=== PATIENT | male | born 1995 | race Caucasian/White ===

== ENCOUNTER 2018-03-11 01:06 | Emergency (ER) | payer OTHER ==
[2018-03-11] MEDS ORDERED: ACETAMINOPHEN 500 MG TAB PO ONE (02:08)
[2018-03-11] MEDS ORDERED: ONDANSETRON DISINTEGRATING 4 MG TAB PO ONE (02:08)
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
[2018-03-11] MEDS ORDERED: ONDANSETRON 4MG PREPACK#2 BTL TAKEHOME ONE (03:14)
[2018-03-11 03:25] VITALS: BP 123/58
== END 2018-03-11 03:24 | disposition home or self-care (01) ==
DX: R50.9 Fever, unspecified (principal); R11.2 Nausea with vomiting, unspecified; F17.200 Nicotine dependence, unspecified, uncomplicated

== ENCOUNTER 2018-08-01 12:35 | Inpatient (IN) | payer OTHER ==
[2018-08-01] MEDS ORDERED: NICOTINE POLACRILEX 2 MG GUM B PRN (12:52)
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
[2018-08-01 13:16] LABS: PLATELET COUNT 315 10^3/uL (150-400)
--- NOTE | 2018-08-01 17:35 | ASMTTCLDSP ---
TLC Discharge Disposition Disposition: Answers: Admit Disposition Notes: Notes: In consultation with [facility] ED physician, Wilmer Gramajo MD and [facility] on-call psychiatrist, Zack Carvajal MD, both concurred that pt appears to meet 27-65 criteria requiring psychiatric hospitalization as the patient appears to be an imminent risk of harm to self due to a mental illness condition. The patient was given the 3N prohibited belongings list while in the ED. Was patient given the Answers: Yes Inpatient Behavioral Health Prohibited Belongings List while in the ED? Type of Hold: Answers: M1/72-hour Hold Hold initiated by: Answers: ED Physician Date Signed: 08/01/2018 05:34 PM Electronically Signed By:Inés Carrasco
[2018-08-01] MEDS ORDERED: NICOTINE 21 MG/24 HR PATCH TD ONE ×2 (18:04→18:05)
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
[2018-08-01] MEDS ORDERED: LORazepam 0.5 MG TAB PO PRN (19:47)
[2018-08-01] MEDS ORDERED: ACETAMINOPHEN 325 MG TAB PO PRN (19:47)
[2018-08-01] MEDS ORDERED: MAGNESIUM HYDROXIDE 30 ML UDCUP PO PRN (19:47)
[2018-08-01] MEDS ORDERED: OLANZapine DISINTEGR 10 MG TAB PO PRN (19:47)
[2018-08-01] MEDS ORDERED: MAG HYDROX/AL HYDROX/SIMETH 30 ML UDCUP PO PRN (19:47)
[2018-08-01] MEDS: NICOTINE POLACRILEX 2 MG GUM B PRN ×2 (20:09→22:07)
[2018-08-01] MEDS ORDERED: hydrOXYzine HCL 25 MG TAB PO SCH (21:00)
[2018-08-01] MEDS ORDERED: FLUoxetine 20 MG CAP PO SCH (21:00)
[2018-08-01] MEDS: MELATONIN 3 MG TAB PO PRN (22:38)
--- NOTE | 2018-08-01 23:39 | PDGENHP ---
History and Physical History and Physical: HOSPITAL MEDICINE CONSULT FOR BEHAVIOR HEALTH UNIT ADMISSION CC: Suicidal ideation HISTORY: This patient is brought in involuntarily to the ER because of suicidal ideation. He does not have a plan or specific intent but is very scared that he may attempt suicide in the near future. He does not have any weapons. The patient does have significant depression and is on treatment with SSRI for that. He has does not have previous suicide attempts, is not hallucinating, does not have paranoid thoughts. He does drink 3-5 drinks of alcohol daily but does not use street drugs. Notably he has a brother who successfully committed suicide 1 year ago, and states that his family are having quite a bit of trouble coping. His family is in [place] he is the only member here in [place]. He does have a girlfriend here who is supportive and at the bedside. ROS: A comprehensive 10 system review revealed no other significant findings PAST MEDICAL HISTORY: Closed head injury from trauma with skull fracture; this injury leaves him with some memory deficits that are mild, but he is able to work and drive. 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 I have reviewed the list and ordered appropriate medicines. PHYSICAL EXAMINATION: Vital Signs: Stable without fever Examination: General: alert, oriented, good mentation, reasonably relaxed Psych and Affect: Somewhat flat, no anger, no hallucinations, no paranoia or grandiosity, no pressured speech Skin: warm, dry, good color, no rash HEENT: normal Neck: no mass or jvd Resps: relaxed Lungs: clear breath sounds Heart: regular, no murmur Abdomen: soft, nondistended, nontender, +BS, no mass Upper Extremities: normal Lower Extremities: no edema, warm No Bleeding or bruising Neurologic: normal speech/language, normal foam caster, no focal weakness, no tremor IV site: looks normal LABORATORY DATA: Negative drug screen Alcohol 11 Negative salicylate and Tylenol ASSESSMENT: * suicidal ideation and depression * family history of successful suicide in his brother 1 year ago * alcohol abuse 3-5 drinks daily * prior history closed head injury with some mild memory issues PLANS: * I did review with the patient in detail that alcohol significantly increases his risk of successful suicide, as well as hinders any chance of successfully treating his depression, and we had a good discussion around his use of alcohol and approaching sobriety * At this time no other significant medical issues that require any further assessment or management * Agree with transfer to Behavioral Health Unit which the patient is doing voluntarily
[2018-08-02] MEDS: NICOTINE 21 MG/24 HR PATCH TD SCH (08:35)
--- NOTE | 2018-08-02 08:45 | ASMTBHMTP ---
GUILLERMO Master Treatment Plan Master Treatment Plan Answers: Depressed Mood with for: Suicidal Ideation Date: 08/02/2018 Diagnosis on Admission: Major Depressive Disorder Expected length of stay: 3-5 Days Reason for admission: Notes: Per [facility] Evaluation - Pt. is a 23 year old male, single, employed, with a history of depression. He is living an apartment in [place], [place]. The patient self-presented to [facility] ED and was placed on a 27-65 M1 Hold. Per M1 hold, "The patient is having suicidal thoughts of taking pills/medications, history of depression, self-presented with worsening depression." According to the provider report, the patient is being treated with an SSRI. Last night he was sitting in his car with worsening depression and thinking about taking all of his pills. He presents today with continued suicidal ideation which is severe. He denies actually injury and overdose. At the time of initial UTOX testing in the Ed @ 13:00 the patient's BAL was 11. According to security, the patient yelled "fuck" while he was alone in the patient room. Security responded and he reported that was reacting his circumstances. According to the patient's girlfriend, the patient is at his "breaking point", he now realizes how important it is for him to get help. she reported having encouraged him for the past few months with success. She denied any relationship distress, although encourage the difficult of supporting his declining MH. Patient's stated presenting problems: Notes: Tried to kill myself, by taking an overdose. Got scared and brought myself in. Patient's goals for treatment: Notes: Get a psychiatric evaluation. Walk away with a better idea of what to do. 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 Initial disposition plan/considerations: Notes: Return home and maybe take a couple days off from work. Master Treatment Plan Required Signatures Psychiatrist signature: Answers: Psychiatrist: RN on-shift signature: Answers: RN: Patient signature: Answers: Patient: Date Signed: 08/02/2018 08:45 AM Electronically Signed By:Vanessa Velazquez
[2018-08-02] MEDS ORDERED: NICOTINE 21 MG/24 HR PATCH TD ONE ×2 (09:00)
[2018-08-02] MEDS: NICOTINE POLACRILEX 2 MG GUM B PRN ×5 (09:03→21:17)
--- NOTE | 2018-08-02 11:23 | PDMN ---
Medical Necessity Medical necessity: [id number] Major Depressive Disorder, Adult: Inpatient Care: 23 yo w/ major depressive d/o, recurrent, moderate; generalized anxiety d/o; PTSD; r/o bipolar I d/o, on M1 hold, risk of harm to self, suicidal ideation.
[2018-08-02] MEDS ORDERED: FLUoxetine 20 MG CAP PO ONE (13:32)
--- NOTE | 2018-08-02 13:42 | ASMTCMCOM ---
CM Note CM Note Notes: Pt and CC completed MTP and placed in pt's chart. Pt. reports no current legal issues. Pt. stated he drinks "everyday", adding he usually has 5-6 drinks per sitting. Pt. stated his drinking has been a problem and pt "wants to slow down". Pt. stated he would be open to assistance to reduce his drinking. Pt. stated he eats a THC edible every night to help him sleep. Pt. stated he doesn't use any other substances currently. Pt. stated he last used Jasmin and Cocaine two months ago. Pt. denied SI, HI, VH and paranoia. Pt. reports AH of hearing his little brother's voice, who committed suicide one year ago. Pt. stated he hears his brother "saying to come get him, he is scared". Pt. reports AH "not that often" and having been hearing them for the past 6 months. Pt. presents as alert, calm, friendly, good eye contact, and cooperative. Staff report pt. sleeping 8 hours and being medication compliant. Date Signed: 08/02/2018 01:41 PM Electronically Signed By:Vanessa Velazquez
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
[2018-08-02] MEDS: traZODone 50 MG TAB PO SCH (20:56)
[2018-08-02] MEDS: PRAZOSIN HCL 1 MG CAP PO SCH (20:56)
[2018-08-02] MEDS: MELATONIN 3 MG TAB PO PRN (21:17)
[2018-08-03] MEDS: NICOTINE POLACRILEX 2 MG GUM B PRN ×5 (09:05→21:15)
[2018-08-03] MEDS: NICOTINE 21 MG/24 HR PATCH TD SCH (09:06)
[2018-08-03] MEDS: FLUoxetine 20 MG CAP PO SCH (09:34)
--- NOTE | 2018-08-03 14:00 | SOAPPROG ---
SOAP Progress Note Assessment/Plan: Assessment: PTSD, Alcohol Use Disorder, Severe, and Cannabis Use Disorder, Severe. Patient is improving with plan to discharge tomorrow if stable and safe discharge plan. Plan: 1. Psychotropic medications: After reviewing options, risks, and benefits patient agrees to continue current medications. No medication changes at this time as more time is needed to determine ongoing tolerability and efficacy. Plan is to continue to observe patient for response and side effects from medications, and ongoing monitoring and evaluation. 2. Review with patient informed consent and recommendations for psychotropic medication treatment listed below 3. Labs: no additional labs at this time 4. Therapy: continue milieu and group therapy 5. Further investigation including gathering information from patients relatives and review of past case records to inform treatment plan. 6. Safety/Wellness plan and follow-up outpatient appointments to be established prior to discharge. Next steps are for patient to meet with healthcare network pricing consultant to plan a safe discharge plan and establish outpatient services for ongoing treatment. 7. Confer with inpatient treatment team regarding treatment plan. 8. Psychosocial stressors addressed through case management 9. Legal status: M1 10. Consider discharge on Thursday if patient is in stable condition, safe, and has a safe discharge plan. 11. Substance abuse interventions: alcohol and cannabis PSYCHOTROPIC MEDICATION TREATMENT INFORMED CONSENT and RECOMMENDATIONS: Review nature of condition, diagnosis, and prognosis. Review nature and purpose of psychotropic medication treatment. Review type of psychotropic medications being ordered. Review risk and benefits of psychotropic medication treatment. Review probable length of time patient will need to take medications. Review risk and benefits of not undergoing psychotropic medication treatment. Review alternative treatments to psychotropic medications. Review psychotropic medications contraindications, drug-drug interactions, side effects, and importance of reporting any side effects to a psychiatric provider or nurse during inpatient hospitalization, and upon discharge to patients psychiatric outpatient provider, primary care provider, or other health day care aide. Review importance of asking a nurse, psychiatric provider, or primary care provider any questions or problems concerning the psychotropic medications. Verify patient understands the information that has been provided, and understands, accepts, and agrees to psychotropic medications. Review patients safety plan and importance of patient to report to staff while hospitalized if patient is ever a danger to self/others, or unable to care for self, and upon discharge, the importance for patient to contact [facility] or [facility], or go to the nearest emergency room, if patient is ever a danger to self/others, or unable to care for self. Recommend that upon discharge patient establish medication management treatment with a psychiatric provider, establishes routine therapy appointments, and follow-up with primary care provider. Verify patient understands and agrees to these recommendations. 08/03/18 14:10 Subjective: Following up with patient for evaluation of PTSD and safety. Patient reports, "Doing much better, slept well." Patient expresses the following psychiatric symptoms none. Patient describes getting 8 hours of sleep, and reports feeling rested today. Patient reports taking medications as prescribed, and describes response to medications as good. Patient does not report undesirable side effects from the medications, and agrees to continue current medications. Patient reports no nightmares last night, reports he did dream, and slept throughout the night. Patient agrees to meet with his father today for family meeting. Objective: Vital Signs Temp Pulse Resp BP Pulse Ox 36.3 C 50 L 16 105/57 L 96 08/03/18 06:00 08/03/18 06:00 08/03/18 06:00 08/03/18 06:00 08/03/18 06:00 NURSING REPORT: Consulted with nursing for update on patients progress in treatment. Nurses report patient is engaged in treatment, is attending groups, slept 8 hours, expresses the following psychiatric symptoms: none, exhibits the following psychiatric symptoms: none, is eating all meals, and denies SI/HI, denies A/V hallucinations, and denies delusions. FAMILY MEETING: This TRIMMER MEAT met with patient and patients father at patients request to review discharge plan for tomorrow. Patient requests referrals for therapy/EMDR and medication management. This request is relayed to career placement specialist. Patients father plans to return tomorrow for family meeting prior to discharge at 1100. GLOBAL COMMODITY MANAGER UPDATE: establish safe discharge plan including appointments for OP services. SUBSTANCE ABUSE BRIEF INTERVENTION: Brief intervention regarding the risks of alcohol and cannabis abuse is provided to patient with goal to reduce the risk of harm that could result from the continued use of alcohol and cannabis, with the general aim to investigate the problem, raise awareness of problem, develop a solution with the patient, recommend a specific change or activity, and motivate the patient toward change. Assess substance abuse behavior and give supportive advice about harm reduction, recommend a reduction in hazardous/at- risk consumption patterns, and facilitate referrals for additional specialized treatment with career placement specialist. Intermediate goal is for the patient to quit and attend outpatient substance abuse treatment. Intervention focus on intermediate goals to allow for more immediate success in the treatment process to keep the patient motivated. Review following with patient: Cannabis use risks: Short-term use: impaired short-term memory, impaired motor coordination, altered judgement, in high doses paranoia and psychosis. Long-term use addiction, diminished life satisfaction and achievement, symptoms of chronic bronchitis, and increased risk of chronic psychosis disorders if predisposition to such disorders. In withdrawal anger, aggression irritability, anxiety and nervousness, decreased appetite or weight loss, restlessness, and sleep difficulties with strange dreams. Alcohol/Binge Drinking risks: short-term: injuries, violence, alcohol poisoning, risky sexual behaviors. Long-term: high blood pressure, stroke, liver disease, digestive problems, cancer, learning and memory problems, depression and anxiety, social problems, and alcohol dependence. OUTPATIENT SUBSTANCE ABUSE TREATMENT: Patient referred to outpatient provider and treatment for continued treatment related to substance abuse. MSE: The patient presents casually dressed and with good hygiene, and looks stated age. Patient is sitting, posture is upright, and position is relaxed. Patient appears awake, alert, and responds appropriately and reasonably during interview. Patient is engaged, relates well to interviewer, and emotional facial expression is appropriate to situation and changes appropriately with topic. Patient is cooperative, makes comfortable eye contact, and movements are voluntary, deliberate, coordinated, and smooth and even with no inappropriate movements. Patient makes laryngeal sounds effortlessly and shares conversation appropriately; pace of conversation is appropriate, and stream of talking is fluent; articulation is clear and understandable; word choice is effortless and appropriate for education level; completes sentences, occasionally pausing to think; rate and volume are appropriate for interview and setting. Patient reports mood as euthymic. Patients affect is stable with full variable range, congruent with mood, and appropriate to speech and circumstances. Patient has linear and logical thinking, with no loose associations, tangential thought, thought blocking, concrete thinking, or any other signs of formal thought disorder. Patient denies suicidal and homicidal ideation, and denies hallucinations and delusions. Patient appears to be a reliable historian with sound judgement and good insight into current condition. Patient has no apparent dysfunction in recent or remote memory noted , and no evidence of gross cognitive dysfunction noted at any point during the interview. - Time Spent With Patient Time Spent With Patient: 30 minutes, met with patient individually and with patient and patient's father at patient's request for family meeting. - Pending Discharge Pending Discharge Within 24 Hours: Yes Pending Discharge Within 48 Hours: No Pending Discharge Date: 08/04/18 Pending Discharge Time: 11:00 ICD10 Worksheet Patient Problems: Problems Problem Status Onset Severe major depression Acute Suicidal ideation Acute Cerebellar dysfunction Acute Headache Acute Subarachnoid bleed Acute
--- NOTE | 2018-08-03 14:20 | ASMTCMCOM ---
CM Note CM Note Notes: Pt., FOC and LAMP REPLACER had a family meeting today at 1:30pm. Pt. requested a psychiatrist and therapist, would like to be seen in the next week, and wants EMDR therapy. CC will need to follow up with [facility] for pt's therapy, and provider who accepts pt's insurance. Pt. would also benefit from additional substance use support. Staff report pt. sleeping 8 hours and being medication compliant. Date Signed: 08/03/2018 02:19 PM Electronically Signed By:Vanessa Velazquez
[2018-08-03] MEDS: PRAZOSIN HCL 1 MG CAP PO SCH (21:13)
[2018-08-03] MEDS: traZODone 50 MG TAB PO SCH (21:13)
[2018-08-03] MEDS: MELATONIN 3 MG TAB PO PRN (21:14)
[2018-08-04 06:42] VITALS: BP 106/51
[2018-08-04] MEDS: FLUoxetine 20 MG CAP PO SCH (08:48)
[2018-08-04] MEDS: NICOTINE 21 MG/24 HR PATCH TD SCH (08:54)
[2018-08-04] MEDS: NICOTINE POLACRILEX 2 MG GUM B PRN (09:41)
--- NOTE | 2018-08-04 11:43 | ASMTCMCOM ---
CM Note CM Note Notes: CC and COURT ADVOCATE met with Darrel and his father in preparation for discharge. Ct. presented with stable mood and denied SI. Ct. received a list of providers to follow up with upon discharge. Ct. will also have a followed up with his [facility] PCP how will call later in the week to schedule an appointment. Both ct. and FOC reported that they plan on scheduling F/U appointments [facility]. Date Signed: 08/04/2018 11:42 AM Electronically Signed By:Julia Francisco
--- NOTE | 2018-08-04 14:21 | BDS ---
REASON FOR ADMISSION: From the ED note dated 08/01/2018, patient presented to the emergency department, history of depression. The patient reported last night he was sitting in his car with worsening depression and thinking about taking all of his pills. Patient presents to the ER with continued suicidal ideation. Patient denied any actual injury or overdose. The patient was admitted involuntarily on an M1 hold due to being a danger to himself. The patient was admitted for safety, crisis stabilization, and medication management. ADMITTING DIAGNOSES: 1. Posttraumatic stress disorder. 2. Alcohol use disorder, moderate, dependence. 3. Cannabis use disorder, moderate, dependence. ADMISSION PHYSICAL EXAM: The patient was seen on 08/01/2018, for a history and physical for medical clearance for inpatient psychiatric hospitalization and treatment. The patient was medically cleared for inpatient psychiatric hospitalization and treatment. For further details, please refer to history and physical dated 08/01/2018. ADMISSION LABS: CBC from 08/01/2018, within normal limits. BMP from 08/01/2018 , within normal limits. Hemoglobin A1c from 08/01/2018, was 4.6 and within normal limits. Liver function from 08/01/2018, within normal limits. Lipid panel from 08/01/2018, within normal limits, except triglycerides were elevated at 183. LDL cholesterol calculated was elevated at 106. VLDL cholesterol was elevated at 37. Non-HDL cholesterol was elevated at 143. Toxicology screen from 08/01/2018, was negative for all substances screened, was positive for ethyl alcohol with a level of 11. MAJOR PROCEDURES OR TESTS: None. HOSPITAL COURSE: The most prominent symptoms and behaviors while the patient was here were reports of moderate anxiety and moderate depression. Treatment modalities utilized were milieu and group therapy. Patient's current dose of Prozac was increased from 20 mg to 40 mg, and the dosing was changed from h.s. to daily. This change was tolerated with no report of side effects and with good response. Trazodone 50 mg p.o. q.h.s. was started to target insomnia symptoms related to PTSD and depression, was tolerated with no report of side effects and with good response. Prazosin 1 mg p.o. q.h.s. was started to target nightmares related to PTSD symptoms, was tolerated with no report of side effects and with good response. The patient has improved considerably, with no signs of psychiatric symptoms and no psychiatric symptoms expressed at time of discharge. The patient reports he has improved since admission, states to be in stable condition, feels safe to discharge, and he contracts for safety. Patient's response to treatment was good. There were no adverse or unexpected results of treatment. The patient was safe throughout his stay, active in treatment, attended and engaged in groups, and was appropriate with staff and other patients. The patient met with the treatment team prior to discharge to assess readiness to discharge and review discharge plan. The treatment team consensus is the patient is in stable condition, has a safe discharge plan, and is ready to discharge today. CONDITION ON DISCHARGE: Patient is in stable condition and is no longer a danger to self or others, and is not gravely disabled due to mental illness. Patient is no longer in need of inpatient level of care, and can be safely and effectively treated within the community. The patients level of risk at time of discharge is low. MSE: The patient is casually dressed and with good hygiene , and looks stated age. Patient is sitting, posture is upright, and position is relaxed. Patient appears awake, alert, and responds appropriately and reasonably during interview. Patient is engaged, relates well to interviewer, and emotional facial expression is appropriate to situation and changes appropriately with topic. Patient is cooperative, makes comfortable eye contact , and movements are voluntary, deliberate, coordinated, and smooth and even with no inappropriate movements. Patient makes laryngeal sounds effortlessly and shares conversation appropriately; pace of conversation is appropriate, and stream of talking is fluent; articulation is clear and understandable; word choice is effortless and appropriate for education level; completes sentences, occasionally pausing to think; rate and volume are appropriate for interview and setting. Patient reports mood as euthymic. Patients affect is stable with full variable range, congruent with mood, and appropriate to speech and circumstances. Patient has linear and logical thinking, with no loose associations, tangential thought, thought blocking, concrete thinking, or any other signs of formal thought disorder. Patient denies suicidal and homicidal ideation, and denies hallucinations and delusions. Patient appears to be a reliable historian with sound judgement and good insight into current condition. Patient has no apparent dysfunction in recent or remote memory noted , and no evidence of gross cognitive dysfunction noted at any point during the interview. DISCHARGE DIAGNOSES: 1. Posttraumatic stress disorder. 2. Alcohol use disorder, moderate, dependence. 3. Cannabis use disorder, moderate, dependence. CURRENT MEDICATIONS: After reviewing options, risks and benefits with the patient, the patient agrees to continue: 1. Trazodone 50 mg p.o. q.h.s. 2. Prozac 40 mg p.o. daily. 3. Prazosin 1 mg p.o. q.h.s. The patient requests prescriptions for these medications at the time of discharge. Prescriptions for 30 days for each medication are provided. Prescriptions are reviewed with the patient at time of discharge to ensure accuracy and patient understanding. DISPOSITION: Patient left hospital independently and voluntarily with his father and plans to stay with his father in the hotel that his father has here in [place] while visiting. FOLLOWUP: treatment coordinator reports the appropriate outpatient follow-up services have been established and outpatient appointments have been scheduled. The patient received written instructions with times and dates of outpatient follow-up appointments. The following follow-up recommendations were provided to the patient at discharge: Continue psychotropic medications as prescribed and attend appointments as scheduled. Report any side effects to a psychiatric outpatient provider, a primary care provider, or other health ocular care aide. Address any questions or problems concerning the psychotropic medications with a psychiatric outpatient provider, a primary care provider, or other health ocular care aide. Contact [facility] or [facility], or go to the nearest emergency room, if you are ever a danger to yourself/others, or unable to care for yourself. As soon as possible, establish a routine medication management treatment with a psychiatric provider, establish routine therapy appointments, and follow-up with a primary care provider. LEGAL COURSE: The patient was admitted on an M1 hold for involuntary inpatient psychiatric hospitalization. Patient discharged today independently and voluntarily with his father. ATTITUDE AT TIME OF DISCHARGE: The patients attitude was positive at time of discharge, and patient reports looking forward to discharging today. The patient reports he feels safe to discharge, is no longer a danger to himself or others, is in stable condition, and contracts for safety. Patient states he will continue medications as prescribed, and establish medication management treatment with an outpatient provider after discharge. Patient reports he understands the information that has been provided to him, and he understands, accepts, and agrees to psychotropic medications. Patient describes internal protective factors as the coping skills he has learned while hospitalized here, and he plans to continue to practice these coping skills after discharge. FAMILY MEETING: This ORTHOPEDIC SPECIALIST met with patient and patient's father at time of discharge at patient's request to review discharge plan and assess readiness to discharge. Patient's father reports patient has a safe discharge plan and is safe to discharge today. LABS AND STUDIES: There were no pending labs or studies at time of discharge. ADVANCE DIRECTIVES: There were no advance directives on file, and the patient was full code during this hospitalization. The following psychotropic medication treatment informed consent and recommendations were provided to the patient at time of discharge. Patient reports he understands, accepts, and agrees to the information that has been provided. PSYCHOTROPIC MEDICATION TREATMENT INFORMED CONSENT and RECOMMENDATIONS: Review nature of condition, diagnosis, and prognosis. Review nature and purpose of psychotropic medication treatment. Review type of psychotropic medications being prescribed. Review risk and benefits of psychotropic medication treatment. Review probable length of time will need to take medications. Review risk and benefits of not undergoing psychotropic medication treatment. Review alternative treatments to psychotropic medications. Review psychotropic medications contraindications, side effects, and importance of reporting any side effects to a psychiatric provider, primary care provider, or other health ocular care aide. Review importance of asking a psychiatric provider or primary care provider any questions or problems concerning the psychotropic medications. Review safety plan and the importance to contact [facility] or [facility] , or go to the nearest emergency room, if ever a danger to yourself/others, or unable to care for yourself. Recommend upon discharge to establish routine medication management treatment with a psychiatric provider, establish routine therapy appointments, and follow-up with a primary care provider. Verify patient understands, accepts, and agrees to the information that has been provided. SUICIDE ASSESSMENT FIVE-STEP EVALUATION AND TRIAGE (1) RISK FACTORS: (a) Suicidal behavior: one previous attempt in 2012 (b) Current/past psychiatric disorders: PTSD, Alcohol and Cannabis Use Disorders (c) Allison symptoms: none expressed or exhibited at time of discharge (d) Family history: brother completed suicide 2016 (e) Precipitants/Stressors/Interpersonal: none (f) Change in treatment: discharge from psychiatric hospital (g) Access to firearms: none (2) PROTECTIVE FACTORS: (a) Internal: coping skills learned while hospitalized (b) External: family, friends, and future (3) SUICIDAL INQUIRY: (a) Ideation: none (b) Plan: none (c) Behaviors: none; patient was safe throughout stay with no suicidal or parasuicidal behaviors (d) Intent: none (4) RISK LEVEL: Low: modifiable risk factors, strong protective factors; no suicidal or self-injurious ideation. Intervention: treatment plan to reduce symptoms including medications and therapy, provided emergency/crisis numbers, and established follow-up plan. /[id number]
== END 2018-08-04 11:54 | disposition home or self-care (01) | DRG 882 ==
LOC: BBEH 19:15
PROVIDERS: ADMIT Psychiatry & Neurology Psychiatry; ATTEND Registered Nurse
DX: F43.10 Post-traumatic stress disorder, unspecified (principal); R45.851 Suicidal ideations; F10.20 Alcohol dependence, uncomplicated; F12.20 Cannabis dependence, uncomplicated; F41.9 Anxiety disorder, unspecified; F32.9 Major depressive disorder, single episode, unspecified; Z87.820 Personal history of traumatic brain injury
CPT/HCPCS: 80305; G0480